=== PATIENT | female | born 1995 | race Caucasian/White ===

== ENCOUNTER 2017-02-25 22:17 | Emergency (ER) | payer OTHER ==
[~2017-02-25] VITALS: Ht 160 cm; Wt 54.4 kg
[2017-02-25] MEDS ORDERED: LACTATED RINGERS 1,000 ML IV ONE (22:29)
[2017-02-25 22:41] LABS: BASOPHILS % (AUTO) 0 % (0-10); EOSINOPHILS # (AUTO) 0.2 10^3/uL (0.0-0.3); EOSINOPHILS % (AUTO) 2 % (0-10); LYMPHOCYTES # (AUTO) 4.5 X 10^3 (1.0-4.0); LYMPHOCYTES % (AUTO) 46 % (12-44); MEAN CORPUSCULAR HEMOGLOBIN 30 PG (25-34); MEAN CORPUSCULAR HGB CONC 34 G/DL (32-36); MEAN CORPUSCULAR VOLUME 89 FL (80-99); MEAN PLATELET VOLUME 10.3 FL (7.4-10.4); MONOCYTES # (AUTO) 0.9 X 10^3 (0.0-1.0); MONOCYTES % (AUTO) 9 % (0-12); NEUTROPHILS # (AUTO) 4.1 X 10^3 (1.8-7.8); NEUTROPHILS % (AUTO) 42 % (42-75); PLATELET COUNT 291 10^3/uL (130-400); RED BLOOD COUNT 4.99 10^6/uL (4.35-5.85); RED CELL DISTRIBUTION WIDTH 12.6 % (10.0-14.5); WHITE BLOOD COUNT 9.7 10^3/uL (4.3-11.0)
[2017-02-25 22:55] LABS: ALANINE AMINOTRANSFERASE 25 U/L (0-55); ALBUMIN 4.4 GM/DL (3.2-4.5); ALCOHOL < 10 MG/DL (<10); ANION GAP 12 MMOL/L (5-14); ASPARTATE AMINO TRANSFERASE 24 U/L (5-34); BILIRUBIN,TOTAL 1.1 MG/DL (0.1-1.0); BLOOD UREA NITROGEN 19 MG/DL (7-18); BUN/CREATININE RATIO 22; CALCIUM 9.2 MG/DL (8.5-10.1); CARBON DIOXIDE 23 MMOL/L (21-32); CHLORIDE 102 MMOL/L (98-107); CREATININE SERUM 0.87 MG/DL (0.60-1.30); GFR ESTIMATED > 60; GLUCOSE 95 MG/DL (70-105); MAGNESIUM 2.3 MG/DL (1.8-2.4); POTASSIUM 3.4 MMOL/L (3.6-5.0); SODIUM 137 MMOL/L (135-145); TOTAL PROTEIN 7.4 GM/DL (6.4-8.2)
--- NOTE | 2017-02-25 23:03 | ED Syncope ---
General Chief Complaint: Dizziness/Syncope Stated Complaint: SYNCOPE Nursing Triage Note: patient reports getting last headed and passing out. friends report catching patient Source of Information: Patient, EMS History of Present Illness Time Seen by Provider: 22:15 Initial Comments PT ARRIVES VIA EMS FROM A "SORORITY EVENT" AT [employer] PT STATES SHE WAS SITTING DOWN AND STARTED TO FEEL LIGHTHEADED AND "PASSED OUT" BYSTANDERS CAUGHT HER AND SHE DID NOT INJURE HERSELF BYSTANDER THAT ARRIVES WITH PT, STATES THAT SHE WAS "PASSED OUT" FOR 15 MINUTES , BUT ALSO STATES "SHE WAS STILL CONSCIOUS AND BREATHING, AND HER PULSE WAS FINE , HER EYES WERE JUST FLUTTERING" NO HEADACHE NOW, BUT HAD HEADACHE EARLIER NO NAUSEA/VOMITING SLIGHT DIZZINESS PT STATES THIS HAS HAPPENED AT LEAST TWICE BEFORE, WORK-UP'S NEGATIVE. PT STATES "MY MOM PASSES OUT ALL THE TIME" PT STATES SHE HAS BEEN "UNDER STRESS" WITH SCHOOL, BUT DENIES ANY PROBLEMS WITH FAMILY, FRIENDS, BOYFRIEND, ETC. PT HAD 1 CUP OF COFFEE THIS AM, ICE TEA TONIGHT X 1 GLASS, ATE CHICKEN/RICE/ VEGETABLES ( SMALL AMOUNT) TONIGHT--ONLY INTAKE TODAY AND IS NORMAL FOR PT-- SORORITY FRIEND STATES THAT PT HARDLY EVER EATS AND EATS SMALL AMOUNTS . PT IS [employer] STUDENT AND IS FROM [facility] Allergies and Home Medications Allergies Coded Allergies: No Known Drug Allergies (Unverified , 04/07/16) Home Medications No Active Prescriptions or Reported Meds Constitutional: see HPI, dizziness, weakness EENTM: no symptoms reported Respiratory: no symptoms reported Cardiovascular: see HPI, No chest pain, No edema, No palpitations, syncope, No vascular heart diseas Gastrointestinal: no symptoms reported Genitourinary: no symptoms reported : No LMP: Dec 01, 2016 Control/STD Prophylaxis: IUD Musculoskeletal: no symptoms reported Skin: no symptoms reported Psychiatric/Neurological: See HPI Past Qktravh-Qivahy-Eyafvy Hx Patient Social History Alcohol Use: Denies Use Recreational Drug Use: No Smoking Status: Never a Smoker Recent Foreign Travel: No Contact w/Someone Who Travel: No Recent Infectious Disease Expo: No Recent Hopitalizations: No Immunizations Up To Date Tetanus Booster (TDap): Less than 5yrs PED Vaccines UTD: Yes Seasonal Allergies Seasonal Allergies: No Surgeries History of Surgeries: No Respiratory History of Respiratory Disorde: No Cardiovascular History of Cardiac Disorders: No Neurological History of Neurological Disord: No Reproductive System : No Hx Reproductive Disorders: No Genitourinary History of Genitourinary Disor: No Gastrointestinal History of Gastrointestinal Di: No Musculoskeletal History of Musculoskeletal Dis: No Endocrine History of Endocrine Disorders: No HEENT History of HEENT Disorders: No Cancer History of Cancer: No Psychosocial History of Psychiatric Problem: No Integumentary History of Skin or Integumenta: No Blood Transfusions History of Blood Disorders: No Family Medical History Significant Family History: No Pertinent Family Hx Physical Exam Vital Signs Vital Sign - Last 12Hours 02/25/17 22:23 Temp 98.2 Pulse 89 Resp 18 B/P (MAP) 140/83 Pulse Ox 100 Capillary Refill : Less Than 3 Seconds General Appearance: No Apparent Distress, WD/WN, Thin, Other (VERY DRAMATIC, SLIGHTLY TREMULOUS, ) HEENT: PERRL/EOMI, TMs Normal, Normal ENT Inspection, Pharynx Normal Neck: Full Range of Motion, Normal Inspection, Non Tender, Supple, No Carotid Bruit Cardiovascular: Regular Rate, Rhythm, No Edema, No JVD, No Murmur, Normal Peripheral Pulses Respiratory: Chest Non Tender, Normal Breath Sounds, No Accessory Muscle Use, No Respiratory Distress Gastrointestinal: Normal Bowel Sounds, No Organomegaly, No Pulsatile Mass, Non Tender, Soft Back: Normal Inspection, No CVA Tenderness, No Vertebral Tenderness Extremities: Normal Capillary Refill, Normal Inspection, Normal Range of Motion , Non Tender, No Calf Tenderness, No Pedal Edema Neurologic/Psychiatric: Alert, Oriented x3, No Motor/Sensory Deficits, forge operator II- XII Norm as Tested Cranial Nerves: Normal Hearing, Normal Speech, PERRL Motor/Sensory: No Motor Deficit, No Sensory Deficit, No Pronator Drift Reflexes: 1+ Bicep (R), 1+ Bicep (L), 1+ Knee (R), 1+ Knee (L) Skin: Normal Color, Warm/Dry Progress/Results/Core Measures Results/Orders Lab Results Laboratory Tests Test 02/25/17 22:25 02/25/17 23:27 Range/Units White Blood Count 9.7 4.3-11.0 10^3/uL Red Blood Count 4.99 4.35-5.85 10^6/uL Hemoglobin 14.9 11.5-16.0 G/DL Hematocrit 44 35-52 % Mean Corpuscular Volume 89 80-99 FL Mean Corpuscular Hemoglobin 30 25-34 PG Mean Corpuscular Hemoglobin Concent 34 32-36 G/DL Red Cell Distribution Width 12.6 10.0-14.5 % Platelet Count 291 130-400 10^3/uL Mean Platelet Volume 10.3 7.4-10.4 FL Neutrophils (%) (Auto) 42 42-75 % Lymphocytes (%) (Auto) 46 H 12-44 % Monocytes (%) (Auto) 9 0-12 % Eosinophils (%) (Auto) 2 0-10 % Basophils (%) (Auto) 0 0-10 % Neutrophils # (Auto) 4.1 1.8-7.8 X 10^3 Lymphocytes # (Auto) 4.5 H 1.0-4.0 X 10^3 Monocytes # (Auto) 0.9 0.0-1.0 X 10^3 Eosinophils # (Auto) 0.2 0.0-0.3 10^3/uL Basophils # (Auto) 0.0 0.0-0.1 10^3/uL Sodium Level 137 135-145 MMOL/L Potassium Level 3.4 L 3.6-5.0 MMOL/L Chloride Level 102 98-107 MMOL/L Carbon Dioxide Level 23 21-32 MMOL/L Anion Gap 12 5-14 MMOL/L Blood Urea Nitrogen 19 H 7-18 MG/DL Creatinine 0.87 0.60-1.30 MG/DL Estimat Glomerular Filtration Rate > 60 BUN/Creatinine Ratio 22 Glucose Level 95 70-105 MG/DL Calcium Level 9.2 8.5-10.1 MG/DL Magnesium Level 2.3 1.8-2.4 MG/DL Total Bilirubin 1.1 H 0.1-1.0 MG/DL Aspartate Amino Transf (AST/SGOT) 24 5-34 U/L Alanine Aminotransferase (ALT/SGPT) 25 0-55 U/L Alkaline Phosphatase 88 40-136 U/L Troponin I < 0.30 <0.30 NG/ML Total Protein 7.4 6.4-8.2 GM/DL Albumin 4.4 3.2-4.5 GM/DL TSH [place] Testing 1.37 0.35-4.94 UIU/ML Serum Test, Qualitative NEGATIVE NEGATIVE Serum Alcohol < 10 <10 MG/DL Urine Color YELLOW Urine Clarity CLEAR Urine pH 6.5 5-9 Urine Specific [place] 1.010 L 1.016-1.022 Urine Protein NEGATIVE NEGATIVE Urine Glucose (UA) NEGATIVE NEGATIVE Urine Ketones NEGATIVE NEGATIVE Urine Nitrite NEGATIVE NEGATIVE Urine Bilirubin NEGATIVE NEGATIVE Urine Urobilinogen NORMAL NORMAL MG/DL Urine Leukocyte Esterase 2+ H NEGATIVE Urine RBC (Auto) 1+ H NEGATIVE Urine RBC RARE /HPF Urine WBC 2-5 /HPF Urine Squamous Epithelial Cells 5-10 /HPF Urine Crystals PRESENT H /LPF Urine Amorphous Sediment FEW RICHARD URATES H /LPF Urine Bacteria TRACE /HPF Urine Casts NONE /LPF Urine Mucus NEGATIVE /LPF Urine Culture Indicated NO Urine Opiates Screen NEGATIVE NEGATIVE Urine Oxycodone Screen NEGATIVE NEGATIVE Urine Methadone Screen NEGATIVE NEGATIVE Urine Propoxyphene Screen NEGATIVE NEGATIVE Urine Barbiturates Screen NEGATIVE NEGATIVE Ur Tricyclic Antidepressants Screen NEGATIVE NEGATIVE Urine Phencyclidine Screen NEGATIVE NEGATIVE Urine Amphetamines Screen NEGATIVE NEGATIVE Urine Methamphetamines Screen NEGATIVE NEGATIVE Urine Benzodiazepines Screen NEGATIVE NEGATIVE Urine Cocaine Screen NEGATIVE NEGATIVE Urine Cannabinoids Screen NEGATIVE NEGATIVE My Orders Orders - DANNIE MONTE DO Saline Lock/Iv-Start (02/25/17 22:29) Ekg Tracing (02/25/17 22:29) Monitor-Rhythm Ecg Trace Only (02/25/17 22:29) Ct Head Wo (02/25/17 22:29) Alcohol (02/25/17 22:29) Cbc With Automated Diff (02/25/17 22:29) Comprehensive Metabolic Panel (02/25/17 22:29) Drug Screen Stat (Urine) (02/25/17 22:29) Hcg,Qualitative Serum (02/25/17 22:29) Magnesium (02/25/17 22:29) Thyroid Analyzer (02/25/17 22:29) Troponin I (02/25/17 22:29) Ua Culture If Indicated (02/25/17 22:29) Saline Lock/Iv-Start (02/25/17 22:29) Lactated Ringers (Lr 1000 Ml Iv Solution (02/25/17 22:29) Orthostatic Vital Signs (02/25/17 22:30) Medications Given in ED Current Medications Medications Dose Ordered Sig/Bill Route Start Time Stop Time Status Last Admin Dose Admin Lactated Ringer's 1,000 ml @ 0 mls/hr Q0M ONCE IV 02/25/17 22:29 02/25/17 22:31 DC 02/25/17 22:55 0 MLS/HR Vital Signs/I&O Vital Sign - Last 12Hours 02/25/17 22:23 Temp 98.2 Pulse 89 Resp 18 B/P (MAP) 140/83 Pulse Ox 100 Blood Pressure Mean: 102 Departure Impression Impression: Primary Impression: Syncope Additional Impression: MILD HYPOKALEMIA Disposition: HOME, SELF-CARE Condition: Improved Departure-Patient Inst. Referrals: [facility] (PCP/Family) Primary Care Physician Patient Instructions: Hypokalemia (DC), Syncope (Fainting) (DC) Add. Discharge Instructions: HOME, REST DRINK EQUAL AMOUNTS OF WATER AND GATORADE--DRINK ENOUGH SO YOU ARE URINATING EVERY 2-3 HOURS WHILE AWAKE AVOID CAFFEINE OR OTHER STIMULANTS EAT AT LEAST 3 TIMES A DAY--HIGH PROTEIN MEALS NO DRIVING UNTIL YOU ARE CLEARED BY A DR. RETURN TO ER IF SYMPTOMS WORSEN All discharge instructions reviewed with patient and/or family. Voiced understanding. Scripts No Active Prescriptions or Reported Meds DANNIE MONTE DO Feb 25, 2017 23:03
[2017-02-25 23:34] LABS: TROPONIN I < 0.30 NG/ML (<0.30)
[2017-02-25 23:49] LABS: BILIRUBIN,URINE NEGATIVE (NEGATIVE); KETONES,URINE NEGATIVE (NEGATIVE); LEUKOCYTE ESTERASE ,URINE 2+ (NEGATIVE); NITRITE,URINE NEGATIVE (NEGATIVE); PH,URINE 6.5 (5-9); PROTEIN,URINE NEGATIVE (NEGATIVE); UROBILINOGEN,URINE NORMAL (NORMAL)
[2017-02-26 01:37] VITALS: BP 122/67
--- NOTE | 2017-02-26 06:41 | Diagnostic Imaging Report ---
PROCEDURE: CT head without contrast. TECHNIQUE: Multiple contiguous axial images were obtained through the brain without the use of intravenous contrast. INDICATION: Passed out but reportedly did not hit her head, complains of blurry vision, not being able to move any part of her body. Comparison studies: None. FINDINGS: Noncontrast CT scanning of the head demonstrates no mass effect, midline shift, hemorrhage, or extra-axial fluid collection. Lai-white matter differentiation is normal. Ventricles, cortical sulci, and basilar cisterns are normal. Bone windows demonstrate no evidence of a fracture. No fluid is seen in the mastoid air cells or the visualized portions of the paranasal sinuses. IMPRESSION: Normal CT scanning of the head. Dictated by: Dictated on workstation # [id number]
== END 2017-02-26 01:37 | disposition home or self-care (01) ==
LOC: EDUNIT# 22:17 → ER 22:19
DX: E87.6 Hypokalemia (principal); R55 Syncope and collapse
CPT/HCPCS: 36415; 70450; 80053; 80306; 80320; 81000; 83735; 84443; 84484; 84703; 85025; 93005; 93041; 96360; 96361

== ENCOUNTER 2017-03-02 10:19 | Emergency (ER) | payer OTHER ==
[~2017-03-02] VITALS: Ht 167.6 cm; Wt 59.0 kg
[2017-03-02] MEDS ORDERED: LACTATED RINGERS 1,000 ML IV ONE (11:07)
[2017-03-02 11:32] LABS: BASOPHILS % (AUTO) 1 % (0-10); EOSINOPHILS # (AUTO) 0.1 10^3/uL (0.0-0.3); EOSINOPHILS % (AUTO) 2 % (0-10); LYMPHOCYTES % (AUTO) 37 % (12-44); MEAN CORPUSCULAR HEMOGLOBIN 30 PG (25-34); MEAN CORPUSCULAR HGB CONC 33 G/DL (32-36); MEAN CORPUSCULAR VOLUME 90 FL (80-99); MONOCYTES # (AUTO) 0.4 X 10^3 (0.0-1.0); MONOCYTES % (AUTO) 8 % (0-12); NEUTROPHILS # (AUTO) 2.8 X 10^3 (1.8-7.8); NEUTROPHILS % (AUTO) 52 % (42-75); PLATELET COUNT 261 10^3/uL (130-400); RED BLOOD COUNT 5.37 10^6/uL (4.35-5.85); RED CELL DISTRIBUTION WIDTH 12.8 % (10.0-14.5); WHITE BLOOD COUNT 5.4 10^3/uL (4.3-11.0)
[2017-03-02 11:48] LABS: ANION GAP 10 MMOL/L (5-14); BLOOD UREA NITROGEN 11 MG/DL (7-18); BUN/CREATININE RATIO 13; CALCIUM 9.6 MG/DL (8.5-10.1); CARBON DIOXIDE 26 MMOL/L (21-32); CHLORIDE 104 MMOL/L (98-107); CREATININE SERUM 0.82 MG/DL (0.60-1.30); GFR ESTIMATED > 60; GLUCOSE 93 MG/DL (70-105); MAGNESIUM 2.3 MG/DL (1.8-2.4); POTASSIUM 3.8 MMOL/L (3.6-5.0); SODIUM 140 MMOL/L (135-145)
--- NOTE | 2017-03-02 12:24 | ED General ---
General Chief Complaint: Dizziness/Syncope Stated Complaint: SYNCOPAL EPISODE Nursing Triage Note: Pt apparently passed out at school. Poor recall of the event by the patient. Pt is currently being monitored by a Holter monitor. Pt was seen in the ER recently for the same symptoms. Nursing Sepsis Screen: No Definite Risk Source of Information: Patient Exam Limitations: No Limitations History of Present Illness Time Seen by Provider: 10:20 Initial Comments This 21-year-old young lady presents to the emergency room after having a syncopal episode in class at school. She apparently was not feeling well and then lost consciousness and slid out of her chair. She arrives via EMS. EMS was activated at 09:45 and EMS arrived on scene at 09:57. She reportedly was still unresponsive for EMS but became alert while on the cot. She has global weakness associated with the episode. Patient has had multiple prior episodes including an episode last July, last April, and on of last week. She had a workup in the emergency room last week including labs, CT, etc. There were no significant abnormalities except for mild hypokalemia. She has since been seen at the [facility]. She was fitted with a air sampling and monitoring which she has on at present. She reports she is seeking referral to a neurologist in the [place] area for EEG monitoring. Fingerstick blood sugar for EMS was 85. Vital signs were within normal limits. There was reportedly no trauma of any kind associated with this event. Allergies and Home Medications Allergies Coded Allergies: No Known Drug Allergies (Unverified , 04/07/16) Home Medications No Active Prescriptions or Reported Meds Constitutional: see HPI, weakness EENTM: no symptoms reported Respiratory: no symptoms reported Cardiovascular: syncope Gastrointestinal: no symptoms reported Genitourinary: no symptoms reported : No Musculoskeletal: no symptoms reported Skin: no symptoms reported Psychiatric/Neurological: See HPI Hematologic/Lymphatic: No Symptoms Reported Past Wwjohme-Txgeyd-Ufdutl Hx Patient Social History Alcohol Use: Denies Use Recreational Drug Use: No Smoking Status: Never a Smoker Recent Foreign Travel: No Contact w/Someone Who Travel: No Recent Infectious Disease Expo: No Recent Hopitalizations: No Immunizations Up To Date Tetanus Booster (TDap): Less than 5yrs PED Vaccines UTD: Yes Seasonal Allergies Seasonal Allergies: No Surgeries History of Surgeries: No Respiratory History of Respiratory Disorde: No Cardiovascular History of Cardiac Disorders: No Neurological History of Neurological Disord: No Reproductive System Hx Reproductive Disorders: No Genitourinary History of Genitourinary Disor: No Gastrointestinal History of Gastrointestinal Di: No Musculoskeletal History of Musculoskeletal Dis: No Endocrine History of Endocrine Disorders: No HEENT History of HEENT Disorders: No Cancer History of Cancer: No Psychosocial History of Psychiatric Problem: No Integumentary History of Skin or Integumenta: No Blood Transfusions History of Blood Disorders: No Family Medical History Significant Family History: No Pertinent Family Hx Physical Exam Vital Signs Vital Sign - Last 12Hours 03/02/17 10:34 Temp 98.2 Pulse 80 Resp 16 B/P (MAP) 136/98 Pulse Ox 98 Capillary Refill : Less Than 3 Seconds General Appearance: No Apparent Distress, WD/WN HEENT: PERRL/EOMI, TMs Normal, Normal ENT Inspection, Pharynx Normal Neck: Normal Inspection Respiratory: Lungs Clear, Normal Breath Sounds, No Accessory Muscle Use, No Respiratory Distress Cardiovascular: Regular Rate, Rhythm, No Edema, No Murmur Gastrointestinal: Normal Bowel Sounds, Non Tender, Soft Extremity: Normal Inspection, No Pedal Edema Neurologic/Psychiatric: Alert, Oriented x3, Normal Mood/Affect, marketing and development coordinator II-XII Norm as Tested, Motor Weakness (Generalized) Skin: Normal Color, Warm/Dry Progress/Results/Core Measures Results/Orders Lab Results Laboratory Tests Test 03/02/17 11:20 Range/Units White Blood Count 5.4 4.3-11.0 10^3/uL Red Blood Count 5.37 4.35-5.85 10^6/uL Hemoglobin 15.9 11.5-16.0 G/DL Hematocrit 48 35-52 % Mean Corpuscular Volume 90 80-99 FL Mean Corpuscular Hemoglobin 30 25-34 PG Mean Corpuscular Hemoglobin Concent 33 32-36 G/DL Red Cell Distribution Width 12.8 10.0-14.5 % Platelet Count 261 130-400 10^3/uL Mean Platelet Volume 10.0 7.4-10.4 FL Neutrophils (%) (Auto) 52 42-75 % Lymphocytes (%) (Auto) 37 12-44 % Monocytes (%) (Auto) 8 0-12 % Eosinophils (%) (Auto) 2 0-10 % Basophils (%) (Auto) 1 0-10 % Neutrophils # (Auto) 2.8 1.8-7.8 X 10^3 Lymphocytes # (Auto) 2.0 1.0-4.0 X 10^3 Monocytes # (Auto) 0.4 0.0-1.0 X 10^3 Eosinophils # (Auto) 0.1 0.0-0.3 10^3/uL Basophils # (Auto) 0.0 0.0-0.1 10^3/uL Sodium Level 140 135-145 MMOL/L Potassium Level 3.8 3.6-5.0 MMOL/L Chloride Level 104 98-107 MMOL/L Carbon Dioxide Level 26 21-32 MMOL/L Anion Gap 10 5-14 MMOL/L Blood Urea Nitrogen 11 7-18 MG/DL Creatinine 0.82 0.60-1.30 MG/DL Estimat Glomerular Filtration Rate > 60 BUN/Creatinine Ratio 13 Glucose Level 93 70-105 MG/DL Calcium Level 9.6 8.5-10.1 MG/DL Magnesium Level 2.3 1.8-2.4 MG/DL My Orders Orders - MARLENE HAND MD Basic Metabolic Panel (03/02/17 10:45) Cbc With Automated Diff (03/02/17 10:45) Magnesium (03/02/17 10:45) Saline Lock/Iv-Start (03/02/17 10:48) Ekg Tracing (03/02/17 10:48) Monitor-Rhythm Ecg Trace Only (03/02/17 10:48) Lactated Ringers (Lr 1000 Ml Iv Solution (03/02/17 11:07) Medications Given in ED Current Medications Medications Dose Ordered Sig/Bill Route Start Time Stop Time Status Last Admin Dose Admin Lactated Ringer's 1,000 ml @ 0 mls/hr Q0M ONCE IV 03/02/17 11:07 03/02/17 11:08 DC 03/02/17 11:21 1,000 MLS/HR Vital Signs/I&O Vital Sign - Last 12Hours 03/02/17 03/02/17 10:34 12:30 Temp 98.2 97.5 Pulse 80 64 Resp 16 16 B/P (MAP) 136/98 Pulse Ox 98 99 Blood Pressure Mean: 111 Progress Note : Progress Note Notes were reviewed from prior visit. EKG and imaging studies were also reviewed. Basic labs were again ordered and found to be unremarkable. Orthostatic blood pressures were attempted but patient had difficulty standing due to lightheadedness. A liter of LR was ordered. A repeat attempt at orthostatic blood pressure showed normal pressures and patient was asymptomatic upon standing. Case was reviewed with Dr. Mccabe. She requested patient be dismissed to return her heart monitor to [facility] for interrogation. Departure Impression Impression: Primary Impression: Syncope Qualified Codes: R55 - Syncope and collapse Additional Impression: Generalized weakness Disposition: 01 HOME, SELF-CARE Condition: Improved Departure-Patient Inst. Decision time for Depature: 12:10 Referrals: [facility] (PCP/Family) Primary Care Physician Patient Instructions: Syncope (Fainting) (DC) Add. Discharge Instructions: Present to the [facility] by one o'clock p.m. today to have your heart monitor downloaded. Stay well-hydrated and eat a well-balanced diet. Do not skip meals. Return to the ER if symptoms worsen. Do not drive until cleared by a physician. Avoid other situations that may be dangerous if you should have another syncopal episode such as swimming, use of heights, bike riding, etc. All discharge instructions reviewed with patient and/or family. Voiced understanding. Scripts No Active Prescriptions or Reported Meds Work/School Note: School/Childcare Release Date Seen in the Emergency Department: Mar 02, 2017 Time Dismissed from Emergency Department: 12:30 Return to School: Mar 03, 2017 Copy Copies To 1: JORGE MCCABE MD, JOSHUA T MD Mar 02, 2017 12:24
[2017-03-02 12:30] VITALS: BP 125/86
== END 2017-03-02 12:30 | disposition home or self-care (01) ==
LOC: EDUNIT# 10:19 → ER 10:20
DX: R55 Syncope and collapse (principal); R53.1 Weakness
CPT/HCPCS: 36415; 80048; 83735; 85025; 93005; 93041; 96360